=== PATIENT | male | born 1990 | race Caucasian/White ===

== ENCOUNTER 2018-02-18 08:10 | Day surgery (SDC) | payer OTHER ==
[~2018-02-18] VITALS: Ht 188 cm; Wt 139.0 kg
[~2018-02-18 08:10] MED LIST: BUPIVACAINE/PF 0.25% ONE; BUPIVACAINE/PF-EPI 0.5% 1:200K ONE; EPINEPHRINE 1 MG/ML, 1ML ONE; GABA300C10 PO; HYDR-3240 PO; THROMBIN 5,000 UNIT VIAL TP ONE; VANCOMYCIN 1,000 MG ONE; gabapentin PO
[2018-02-18] MEDS ORDERED: LACTATED RINGERS 1,000 ML IV SCH (08:58)
[2018-02-18] MEDS ORDERED: LIDOCAINE/PF 0.5% ,50ML ONE (08:58)
[2018-02-18] MEDS ORDERED: ONDANSETRON ODT 8 MG PO ONE (09:00)
[2018-02-18] MEDS ORDERED: LIDOCAINE-MPF 1%, 2ML INFIL ONE (09:00)
[2018-02-18] MEDS ORDERED: OXYcodone IR 5MG TABLET PO ONE (09:00)
[2018-02-18] MEDS ORDERED: ACETAMINOPHEN 500 MG TABLET PO ONE (09:00)
[2018-02-18] MEDS ORDERED: GABAPENTIN 300 MG CAPSULE PO ONE (09:00)
[2018-02-18 09:03] VITALS: BP 127/77
[2018-02-18] MEDS ORDERED: FENTANYL PF 250 MCG/5ML ONE (09:23)
[2018-02-18] MEDS ORDERED: MIDAZOLAM 1 MG/ML, 2ML ONE (09:23)
[2018-02-18] MEDS ORDERED: PROPOFOL 10 MG/ML, 20ML ONE ×2 (09:25)
[2018-02-18] MEDS ORDERED: DEXAMETHASONE 4 MG/ML, 1ML ONE ×2 (09:25→09:26)
[2018-02-18] MEDS ORDERED: SUCCINYLCHOLINE 20 MG/ML, 10ML ONE (09:25)
[2018-02-18] MEDS ORDERED: ONDANSETRON 2MG/ML, 2ML ONE (10:03)
[2018-02-18] MEDS ORDERED: ROCURONIUM 10 MG/ML,10ML ONE (10:03)
[2018-02-18] MEDS ORDERED: CEFAZOLIN 1,000 MG ONE (10:03)
[2018-02-18] MEDS ORDERED: FENTANYL PF 100 MCG/2ML ONE ×2 (10:29→13:04)
[2018-02-18] MEDS ORDERED: PROCHLORPERAZINE 5 MG/ML, 2ML IV PRN (11:30)
[2018-02-18] MEDS ORDERED: LABETALOL 5MG/ML, 20ML IV PRN (11:30)
[2018-02-18] MEDS ORDERED: PROMETHAZINE 25 MG SUPP PR PRN (11:30)
[2018-02-18] MEDS ORDERED: MORPHINE SULFATE 4 MG/ML, 1ML IVPush PRN (11:30)
[2018-02-18] MEDS ORDERED: PROMETHAZINE 12.5 MG SUPP PR PRN (11:30)
[2018-02-18] MEDS ORDERED: PROMETHAZINE 25 MG/ML, 1ML IV PRN (11:30)
[2018-02-18] MEDS ORDERED: MIDAZOLAM 1 MG/ML, 2ML IV PRN (11:30)
[2018-02-18] MEDS ORDERED: ONDANSETRON 2MG/ML, 2ML IV PRN (11:30)
[2018-02-18] MEDS ORDERED: DIPHENHYDRAMINE 50 MG/ML, 1ML IVPush PRN (11:30)
[2018-02-18] MEDS ORDERED: EPHEDRINE 50 MG/ML, 1ML IVPush PRN (11:30)
[2018-02-18] MEDS ORDERED: MEPERIDINE/PF 25MG/0.5ML IVPush PRN (11:30)
[2018-02-18] MEDS ORDERED: EPHEDRINE 50 MG/ML, 1ML IM PRN (11:30)
[2018-02-18] MEDS ORDERED: BUPIVACAINE/PF-EPI 0.25% 1:200K INFIL ONE (11:33)
[2018-02-18] MEDS ORDERED: GLYCOPYRROLATE 0.2MG/1ML, 5ML ONE (11:51)
[2018-02-18] MEDS ORDERED: NEOSTIGMINE 1 MG/ML, 10ML ONE (11:51)
[2018-02-18] MEDS ORDERED: OXYcodone 5 MG/5 ML ORAL.SOL UDC ONE (13:05)
[2018-02-18] MEDS: FENTANYL PF 100 MCG/2ML IV PRN ×2 (13:07→13:12)
[2018-02-18] MEDS: OXYcodone 5 MG/5 ML ORAL.SOL UDC PO PRN ×2 (13:08→13:13)
== END 2018-02-18 14:50 | disposition home or self-care (01) ==
LOC: OUT 08:10
PROVIDERS: ATTEND Orthopaedic Surgery Orthopaedic Surgery of the Spine
DX: M51.16 Intervertebral disc disorders with radiculopathy, lumbar region (principal); I10 Essential (primary) hypertension; Z98.890 Other specified postprocedural states; Z98.84 Bariatric surgery status; Z79.899 Other long term (current) drug therapy
CPT/HCPCS: 63030; 63035; 72100; J0171; J0330; J0690; J1100; J2001; J2250; J2405; J2704; J2710; J3010; J3370; J3490; J7120; Q0162

== ENCOUNTER 2018-03-11 15:56 | Emergency (ER) | payer OTHER ==
[~2018-03-11] VITALS: Ht 188 cm; Wt 135.0 kg
[~2018-03-11 15:56] MED LIST changes: -BUPIVACAINE/PF 0.25% ONE; -BUPIVACAINE/PF-EPI 0.5% 1:200K ONE; -EPINEPHRINE 1 MG/ML, 1ML ONE; -THROMBIN 5,000 UNIT VIAL TP ONE; -VANCOMYCIN 1,000 MG ONE
[2018-03-11] MEDS ORDERED: CEPH-375 PO (16:14)
[2018-03-11 16:28] LABS: BASOPHILS # (AUTO) 0.02 x10^3/uL (0-0.1); BASOPHILS % (AUTO) 0 % (0-1); EOSINOPHILS # (AUTO) 0.08 x10^3/uL (0-0.4); EOSINOPHILS % (AUTO) 1 % (1-7); LYMPHOCYTES # (AUTO) 1.33 x10^3/uL (1-3.4); LYMPHOCYTES % (AUTO) 9 % (22-44); MD NO; MEAN CORPUSCULAR HGB CONC 34.1 g/dL (33.2-36.2); MEAN CORPUSCULAR VOLUME 85.3 fL (81-97); MEAN PLATELET VOLUME 8.6 fL (7.4-10.4); MONOCYTES # (AUTO) 1.24 x10^3/uL (0.2-0.8); MONOCYTES % (AUTO) 8 % (2-9); NEUTROPHILS # (AUTO) 12.82 x10^3/uL (1.8-6.8); NEUTROPHILS % (AUTO) 83 % (42-75); PLATELET COUNT 277 x10^3/uL (130-400); RED BLOOD COUNT 4.81 x10^6/uL (4.38-5.82); RED CELL DISTRIBUTION WIDTH 13.5 % (9.4-14.8)
--- NOTE | 2018-03-11 16:35 | NUR ---
PT TO MRI AT THIS TIME.
[2018-03-11 16:38] LABS: ALBUMIN 3.4 g/dL (3.4-5.0); ANION GAP 7 mmol/L (5-15); CALCIUM 8.9 mg/dL (8.5-10.1); CHLORIDE 106 mmol/L (98-107); CREATININE 0.61 mg/dL (0.7-1.3)
[2018-03-11] MEDS ORDERED: GADOBUTROL 15 MMOL/15 ML VIAL ONE (17:19)
--- NOTE | 2018-03-11 20:06 | NUR ---
CALLED RADIOLOGY DEPT AND SPOKE WITH TIM WHO IS CHECKING ON STATUS OF MRI REPORT. TIM TO CALL BACK.
[2018-03-11 20:18] VITALS: BP 116/56
--- NOTE | 2018-03-11 20:19 | NUR ---
VS UPDATED AND WNL. AWAITING FINAL MRI REPORT.
--- NOTE | 2018-03-11 21:09 | NUR ---
Patient/Caregiver given discharge instructions and they have confirmed that they understand the instructions. Patient ambulatory with steady gait.
== END 2018-03-11 21:11 | disposition home or self-care (01) ==
LOC: ED 20:45
DX: T81.31XA Disruption of external operation (surgical) wound, not elsewhere classified, initial encounter (principal)
CPT/HCPCS: 36415; 72158; 80048; 82040; 85025; 85651; 86141; 87070; 87077; 87186; 87205; 99284; A9585

== ENCOUNTER 2018-03-13 09:30 | Inpatient (IN) | payer OTHER ==
[~2018-03-13] VITALS: Ht 188 cm; Wt 142.2 kg
[~2018-03-13 09:30] MED LIST changes: +CEPH-375 PO
[2018-03-13 09:55] VITALS: BP 141/73
[2018-03-13] MEDS ORDERED: MIDAZOLAM 1 MG/ML, 2ML ONE (09:58)
[2018-03-13] MEDS ORDERED: FENTANYL PF 250 MCG/5ML ONE (09:58)
[2018-03-13] MEDS ORDERED: PROPOFOL 10 MG/ML, 20ML ONE (10:02)
[2018-03-13] MEDS ORDERED: NEOSTIGMINE 1 MG/ML, 10ML ONE (10:02)
[2018-03-13] MEDS ORDERED: GLYCOPYRROLATE 0.2MG/1ML, 5ML ONE (10:02)
[2018-03-13] MEDS ORDERED: CEFAZOLIN 1,000 MG ONE (10:02)
[2018-03-13] MEDS ORDERED: ROCURONIUM 10MG/ML,5ML ONE (10:02)
[2018-03-13] MEDS ORDERED: LACTATED RINGERS 1,000 ML IV SCH (10:04)
[2018-03-13] MEDS ORDERED: EPINEPHRINE 1 MG/ML, 1ML ONE (11:28)
[2018-03-13] MEDS ORDERED: BUPIVACAINE/PF 0.25% ONE (11:28)
[2018-03-13] MEDS ORDERED: VANCOMYCIN 1,000 MG ONE ×3 (11:28→12:48)
[2018-03-13] MEDS ORDERED: LIDOCAINE 1%-EPI 1:100K, 30ML ONE (11:28)
[2018-03-13] MEDS ORDERED: BACITRACIN 50,000 UNIT ONE (11:28)
[2018-03-13] MEDS ORDERED: MEPERIDINE/PF 25MG/0.5ML IVPush PRN (12:00)
[2018-03-13] MEDS ORDERED: ONDANSETRON ODT 8 MG PO PRN (12:00)
[2018-03-13] MEDS ORDERED: LABETALOL 5MG/ML, 20ML IV PRN (12:00)
[2018-03-13] MEDS ORDERED: ONDANSETRON 2MG/ML, 2ML IV PRN ×2 (12:00→15:00)
[2018-03-13] MEDS ORDERED: PROMETHAZINE 25 MG SUPP PR PRN (12:00)
[2018-03-13] MEDS ORDERED: OXYcodone 5 MG/5 ML ORAL.SOL UDC PO PRN (12:00)
[2018-03-13] MEDS ORDERED: PROMETHAZINE 12.5 MG SUPP PR PRN (12:00)
[2018-03-13] MEDS ORDERED: PROMETHAZINE 25 MG/ML, 1ML IV PRN (12:00)
[2018-03-13] MEDS ORDERED: hydrALAzine 20 MG/ML, 1ML IV PRN (12:00)
[2018-03-13] MEDS ORDERED: ACETAMINOPHEN 325 MG TABLET PO PRN (12:00)
[2018-03-13] MEDS ORDERED: PROMETHAZINE 25 MG/ML, 1ML IM PRN ×3 (12:00→15:00)
[2018-03-13] MEDS ORDERED: MORPHINE SULFATE 4 MG/ML, 1ML IVPush PRN (12:00)
[2018-03-13] MEDS ORDERED: FENTANYL PF 100 MCG/2ML ONE ×2 (12:32→13:48)
[2018-03-13] MEDS ORDERED: VANCOMYCIN 1,000 MG IM ONE (12:52)
[2018-03-13] MEDS: HYDROmorphone 2 MG/ML, 1ML IVPush PRN ×4 (13:29→13:50)
[2018-03-13] MEDS ORDERED: OXYcodone 5 MG/5 ML ORAL.SOL UDC ONE (13:31)
[2018-03-13] MEDS ORDERED: MEPERIDINE/PF 25MG/ML,1ML ONE (13:31)
[2018-03-13] MEDS ORDERED: HYDROmorphone 2 MG/ML, 1ML ONE (13:31)
[2018-03-13] MEDS: FENTANYL PF 100 MCG/2ML IV PRN ×2 (13:49→13:54)
[2018-03-13] MEDS ORDERED: METHOCARBAMOL 1,000 MG in DEXTROSE 5% 100 ML IV ONE (14:30)
[2018-03-13] MEDS ORDERED: MAGNESIUM HYDROXIDE 8%, 30ML UDC PO PRN (15:00)
[2018-03-13] MEDS ORDERED: BISACODYL 10 MG SUPP PR PRN (15:00)
[2018-03-13] MEDS ORDERED: morphine SULFATE 10 MG/ML, 1ML IV PRN (15:00)
[2018-03-13] MEDS: D5%-0.9% NACL+KCL 20MEQ 1,000 ML IV SCH (15:30)
[2018-03-13 16:00] VITALS: BP 125/73
[2018-03-13] MEDS: HYDROcodone/APAP 10/325 MG TABLET PO PRN ×2 (18:20→22:29)
[2018-03-13 19:46] VITALS: BP 136/72
[2018-03-13] MEDS: GABAPENTIN 300 MG CAPSULE PO SCH (20:09)
[2018-03-14] VITALS: BP 127/65
[2018-03-14] MEDS: METHOCARBAMOL 750 MG in DEXTROSE 5% 100 ML IV SCH ×3 (00:18→15:48)
[2018-03-14] MEDS: D5%-0.9% NACL+KCL 20MEQ 1,000 ML IV SCH ×3 (01:00→20:41)
[2018-03-14] MEDS: HYDROcodone/APAP 10/325 MG TABLET PO PRN ×4 (04:10→21:00)
[2018-03-14 04:27] VITALS: BP 113/65
[2018-03-14 05:03] LABS: BASOPHILS # (AUTO) 0.04 x10^3/uL (0-0.1); BASOPHILS % (AUTO) 1 % (0-1); EOSINOPHILS % (AUTO) 3 % (1-7); LYMPHOCYTES # (AUTO) 1.74 x10^3/uL (1-3.4); LYMPHOCYTES % (AUTO) 26 % (22-44); MD NO; MEAN CORPUSCULAR HEMOGLOBIN 28.9 pg (27.5-34.5); MEAN CORPUSCULAR HGB CONC 33.6 g/dL (33.2-36.2); MEAN PLATELET VOLUME 8.3 fL (7.4-10.4); MONOCYTES # (AUTO) 0.78 x10^3/uL (0.2-0.8); MONOCYTES % (AUTO) 12 % (2-9); NEUTROPHILS # (AUTO) 3.97 x10^3/uL (1.8-6.8); NEUTROPHILS % (AUTO) 59 % (42-75); PLATELET COUNT 330 x10^3/uL (130-400); RED BLOOD COUNT 4.21 x10^6/uL (4.38-5.82); RED CELL DISTRIBUTION WIDTH 12.8 % (9.4-14.8)
[2018-03-14 05:12] LABS: ANION GAP 5 mmol/L (5-15); CALCIUM 8.5 mg/dL (8.5-10.1); CHLORIDE 108 mmol/L (98-107)
[2018-03-14 05:15] LABS: CREATININE 0.51 mg/dL (0.7-1.3)
[2018-03-14 06:33] VITALS: BP 116/75
[2018-03-14] MEDS: GABAPENTIN 300 MG CAPSULE PO SCH ×2 (08:01→20:41)
[2018-03-14] MEDS: SENNA/DOCUSATE TABLET PO SCH (08:01)
[2018-03-14] MEDS: CEFAZOLIN PMX 2GM/50ML 50 ML IVPB SCH ×2 (10:37→18:05)
[2018-03-14 14:15] VITALS: BP 114/63
[2018-03-14 19:05] VITALS: BP 129/70
[2018-03-15] MEDS: METHOCARBAMOL 750 MG in DEXTROSE 5% 100 ML IV SCH ×3 (00:32→17:07)
[2018-03-15 00:41] VITALS: BP 125/59
[2018-03-15] MEDS: HYDROcodone/APAP 10/325 MG TABLET PO PRN ×5 (01:07→21:33)
[2018-03-15] MEDS: CEFAZOLIN PMX 2GM/50ML 50 ML IVPB SCH ×3 (02:20→18:17)
[2018-03-15 05:25] LABS: BASOPHILS # (AUTO) 0.03 x10^3/uL (0-0.1); BASOPHILS % (AUTO) 1 % (0-1); EOSINOPHILS % (AUTO) 5 % (1-7); LYMPHOCYTES % (AUTO) 31 % (22-44); MD NO; MEAN CORPUSCULAR HEMOGLOBIN 28.6 pg (27.5-34.5); MEAN CORPUSCULAR HGB CONC 33.4 g/dL (33.2-36.2); MEAN CORPUSCULAR VOLUME 85.8 fL (81-97); MEAN PLATELET VOLUME 8.5 fL (7.4-10.4); MONOCYTES # (AUTO) 0.64 x10^3/uL (0.2-0.8); MONOCYTES % (AUTO) 11 % (2-9); NEUTROPHILS # (AUTO) 3.12 x10^3/uL (1.8-6.8); NEUTROPHILS % (AUTO) 53 % (42-75); PLATELET COUNT 313 x10^3/uL (130-400); RED BLOOD COUNT 4.09 x10^6/uL (4.38-5.82); RED CELL DISTRIBUTION WIDTH 13.3 % (9.4-14.8)
[2018-03-15 05:29] LABS: ANION GAP 6 mmol/L (5-15); CALCIUM 8.8 mg/dL (8.5-10.1); CHLORIDE 105 mmol/L (98-107); CREATININE 0.59 mg/dL (0.7-1.3)
[2018-03-15 06:47] VITALS: BP 121/70
[2018-03-15] MEDS: D5%-0.9% NACL+KCL 20MEQ 1,000 ML IV SCH ×2 (07:00→17:00)
[2018-03-15] MEDS: SENNA/DOCUSATE TABLET PO SCH (08:48)
[2018-03-15] MEDS: GABAPENTIN 300 MG CAPSULE PO SCH ×2 (08:48→21:28)
[2018-03-15 12:34] VITALS: BP 138/83
[2018-03-15 18:54] VITALS: BP 111/68
[2018-03-16] MEDS: METHOCARBAMOL 750 MG TABLET PO SCH ×3 (01:07→17:30)
[2018-03-16] MEDS: HYDROcodone/APAP 10/325 MG TABLET PO PRN ×2 (02:33→06:34)
[2018-03-16] MEDS: CEFAZOLIN PMX 2GM/50ML 50 ML IVPB SCH (02:33)
[2018-03-16] MEDS: D5%-0.9% NACL+KCL 20MEQ 1,000 ML IV SCH ×3 (02:34→20:25)
[2018-03-16 03:01] VITALS: BP 128/74
[2018-03-16 05:34] LABS: BASOPHILS # (AUTO) 0.04 x10^3/uL (0-0.1); BASOPHILS % (AUTO) 1 % (0-1); EOSINOPHILS # (AUTO) 0.29 x10^3/uL (0-0.4); EOSINOPHILS % (AUTO) 5 % (1-7); LYMPHOCYTES # (AUTO) 1.53 x10^3/uL (1-3.4); LYMPHOCYTES % (AUTO) 27 % (22-44); MD NO; MEAN CORPUSCULAR HEMOGLOBIN 28.2 pg (27.5-34.5); MEAN CORPUSCULAR HGB CONC 32.9 g/dL (33.2-36.2); MEAN CORPUSCULAR VOLUME 85.7 fL (81-97); MEAN PLATELET VOLUME 8.3 fL (7.4-10.4); MONOCYTES # (AUTO) 0.53 x10^3/uL (0.2-0.8); MONOCYTES % (AUTO) 9 % (2-9); NEUTROPHILS # (AUTO) 3.26 x10^3/uL (1.8-6.8); NEUTROPHILS % (AUTO) 58 % (42-75); PLATELET COUNT 340 x10^3/uL (130-400); RED BLOOD COUNT 4.26 x10^6/uL (4.38-5.82); RED CELL DISTRIBUTION WIDTH 13.1 % (9.4-14.8)
[2018-03-16 05:46] LABS: ALBUMIN 3.1 g/dL (3.4-5.0); ANION GAP 5 mmol/L (5-15); CALCIUM 8.9 mg/dL (8.5-10.1); CHLORIDE 105 mmol/L (98-107)
[2018-03-16 05:53] LABS: ALANINE AMINOTRANSFERASE 19 U/L (12-78); ALKALINE PHOSPHATASE 84 U/L (45-117); BILIRUBIN,TOTAL 0.3 mg/dL (0.2-1.0); CREATININE 0.64 mg/dL (0.7-1.3); TOTAL PROTEIN 6.7 g/dL (6.4-8.2)
[2018-03-16 05:55] LABS: HCT (SEDRATE) 36.6 % (39.2-51.8)
[2018-03-16 06:24] VITALS: BP 115/64
[2018-03-16] MEDS: SENNA/DOCUSATE TABLET PO SCH ×2 (08:24→08:27)
[2018-03-16] MEDS: GABAPENTIN 300 MG CAPSULE PO SCH ×2 (08:24→20:39)
[2018-03-16] MEDS: DAPTOMYCIN 850 MG in SODIUM CHLORIDE 0.9% 100 ML IV SCH (08:24)
[2018-03-16] MEDS ORDERED: LIDOCAINE-MPF 1%, 5ML ONE (08:28)
[2018-03-16] MEDS: HYDROcodone/APAP 5/325 TABLET PO PRN ×3 (12:20→21:31)
[2018-03-16 13:35] VITALS: BP 124/60
[2018-03-16 19:04] VITALS: BP 116/57
[2018-03-17] MEDS: METHOCARBAMOL 750 MG TABLET PO SCH ×3 (01:19→17:04)
[2018-03-17 02:21] VITALS: BP 139/77
[2018-03-17 07:56] VITALS: BP 121/63
[2018-03-17] MEDS: D5%-0.9% NACL+KCL 20MEQ 1,000 ML IV SCH ×2 (09:00→17:04)
[2018-03-17] MEDS: HYDROcodone/APAP 5/325 TABLET PO PRN ×4 (09:25→23:51)
[2018-03-17] MEDS: SENNA/DOCUSATE TABLET PO SCH (09:25)
[2018-03-17] MEDS: GABAPENTIN 300 MG CAPSULE PO SCH ×2 (09:25→20:29)
[2018-03-17] MEDS: DAPTOMYCIN 850 MG in SODIUM CHLORIDE 0.9% 100 ML IV SCH (10:17)
[2018-03-17] MEDS ORDERED: ERTAPENEM 1 GM in SODIUM CHLORIDE 0.9% 50 ML IV SCH (11:00)
[2018-03-17] MEDS ORDERED: HYDR-3307 PO (12:28)
[2018-03-17 13:18] VITALS: BP 113/61
[2018-03-17 19:18] VITALS: BP 116/57
[2018-03-18] MEDS: METHOCARBAMOL 750 MG TABLET PO SCH ×2 (01:03→09:35)
[2018-03-18 01:17] VITALS: BP 117/61
[2018-03-18] MEDS: D5%-0.9% NACL+KCL 20MEQ 1,000 ML IV SCH (05:00)
[2018-03-18 06:45] VITALS: BP 121/69
[2018-03-18] MEDS: GABAPENTIN 300 MG CAPSULE PO SCH (09:35)
[2018-03-18] MEDS: SENNA/DOCUSATE TABLET PO SCH (09:35)
[2018-03-18] MEDS: HYDROcodone/APAP 5/325 TABLET PO PRN (09:35)
[2018-03-18 12:39] VITALS: BP 118/58
== END 2018-03-18 14:45 | disposition home or self-care (01) | DRG 856 ==
LOC: OUT 09:30 → 4NOR 14:33 → OUT 14:35 → DCLOUNGE 03-18 14:32
PROVIDERS: ADMIT Orthopaedic Surgery Orthopaedic Surgery of the Spine; ATTEND Orthopaedic Surgery Orthopaedic Surgery of the Spine
PROC: 0J970ZZ Drainage of Back Subcutaneous Tissue and Fascia, Open Approach (ICD-10-PCS; principal; 2018-03-13 11:30)
PROC: 02HV33Z Insertion of Infusion Device into Superior Vena Cava, Percutaneous Approach (ICD-10-PCS; 2018-03-16)
PROC: B5181ZA Fluoroscopy of Superior Vena Cava using Low Osmolar Contrast, Guidance (ICD-10-PCS; 2018-03-16)
PROC: B548ZZA Ultrasonography of Superior Vena Cava, Guidance (ICD-10-PCS; 2018-03-16)
DX: T81.41XA Infection following a procedure, superficial incisional surgical site, initial encounter (principal); G06.2 Extradural and subdural abscess, unspecified; Z68.41 Body mass index [BMI] 40.0-44.9, adult; E66.9 Obesity, unspecified; Z83.3 Family history of diabetes mellitus; D72.829 Elevated white blood cell count, unspecified; Y83.8 Other surgical procedures as the cause of abnormal reaction of the patient, or of later complication, without mention of misadventure at the time of the procedure; Y92.89 Other specified places as the place of occurrence of the external cause
CPT/HCPCS: 36415; 72100; J3490; 36573; 80048; 80053; 82550; 85025; 85651; 86140; 87015; 87070; 87075; 87077; 87102; 87116; 87186; 87205; 87206; G0378; J0171; J0690; J0878; J1170; J1335; J2175; J2250; J2704; J2710; J3010; J3370; C1751; J2800; J3480; J7120